=== PATIENT | female | born 1950 | race Caucasian/White ===

== ENCOUNTER 2018-08-08 08:56 | Outpatient (CLI) | payer BC ==
[2018-08-08 09:33] LABS: BASOPHILS 0.6 % (0-2); EOSINOPHILS 3.5 % (0-7); HEMATOCRIT 43.3 % (36.0-48.0); HEMOGLOBIN 13.9 g/dL (12-16); IMMATURE GRANULOCYTES 0.4 % (0-5); LYMPHOCYTES 26.9 % (15-50); MCHC 32.1 g/dL (31.0-37.0); MCV 87.3 fL (80.0-100.0); MEAN PLATELET VOLUME 10.3 fL (7.4-10.4); MONOCYTES 9.8 % (2-11); NEUTROPHILS 58.8 % (40-80); RBC 4.96 10x6/uL (4.00-5.40); WBC 8.3 10x3/uL (4.8-10.8)
[2018-08-08 09:40] LABS: PLATELET COUNT 320 10x3/uL (130-400)
[2018-08-08 09:41] LABS: CALC OSMOLALITY 283 mosm/kg (275-300); CALCIUM 9.4 mg/dL (8.5-10.1); CARBON DIOXIDE 25.1 mmol/L (21.0-32.0); CHLORIDE - SERUM 104 mmol/L (98-107); CREATININE - SERUM 0.8 mg/dL (0.6-1.3); GLUCOSE 114 mg/dL (74-106); SODIUM 141 mmol/L (136-145); UREA NITROGEN 18 mg/dL (7-18); eGFR NON AFRICAN AMERICAN 75 mL/min (90-120)
== END 2018-08-08 15:30 | disposition home or self-care (01) ==
LOC: D.CATH 08:56
PROVIDERS: Internal Medicine Interventional Cardiology
DX: I25.119 Atherosclerotic heart disease of native coronary artery with unspecified angina pectoris (principal); Z95.5 Presence of coronary angioplasty implant and graft; Z01.812 Encounter for preprocedural laboratory examination

== ENCOUNTER 2019-06-30 13:31 | Inpatient (IN) | payer BC ==
[~2019-06-30] VITALS: Ht 170.2 cm; Wt 81.4 kg
--- NOTE | ~2019-06-30 | HEMODYNAMI ---
PATIENT:KHUSHBU HOBSON MEDICAL RECORD: [id number] : 50 [id number] ADMISSION DATE: 06/30/19 Generatedon:07/01/201915:58 Patient name: KHUSHBU HOBSON Patient #: [id number] SSN: : 1950 Date of study: 07/01/2019 Page: Of Hemodynamic Procedure Report Patient Data Patient Demographics Procedure consent was obtained First Name: KHUSHBU Gender: Female Last Name: JAZLYN : 1950 [facility] Initial: MATHEUS Age: 69 year(s) Patient #: [id number] Race: Unknown Additional ID: [id number] Contact details Address: [address] [place] [address] State: [place] City: [place] Zip code: [address] Admission Admission Data Admission Date: 06/30/2019 Admission Time: 16:44 Arrival Date: 06/30/2019 Arrival Time: 16:44 Admit Source: Emergency Insurance Payor: Private department health insurance Room #: D.2118 [facility] #: [id number] Height (in.): 66.93 BSA: 1.93 (m2) Height (cm.): 170 BMI: 28.03 (kg/m2) Weight (lbs.): 178.58 Weight (kg.): 81 Procedure Procedure Types Cath Procedure Diagnostic Procedure [facility] w/Coronaries FFR/IVUS FFR Initial Sedation Charges Moderate Sedation up to 30 minutes PCI Procedure Coronary Stent Coronary Stent Initial Procedure Description Procedure Date Procedure Date: 07/01/2019 Procedure Start Time: 15:37 Procedure End Time: 15:53 Procedure Staff Name Function Bryn Taylor MD Performing Physician Pennie Lam RT Monitor Mary Lino RT Scrub Delisa Hughes RN Nurse Indication Angina Procedure Data Cath Procedure Fluoroscopy Diagnostic fluoroscopy Total fluoroscopy Time: 2.9 time: 2.9 min min Diagnostic fluoroscopy Total fluoroscopy dose: 453 dose: 453 mGy mGy Contrast Material Contrast Material Type Amount (ml) Isovue 300 71 Entry Location Entry Primary Successful Side Size Upsize Upsize Entry Closure Succes sful Closure Location (Fr) 1 (Fr) 2 (Fr) Remarks Device Remarks Femoral Right 5 Fr Exoseal artery Estimated blood loss: 5 ml Diagnostic catheters Device Type Used For End Catheter Placement MULTIPACK Pigtail 5 Fr LV Angiography catheter MULTIPACK JL 4.0 5Fr Left Coronary catheter Angiography MULTIPACK 3DRC 5Fr Right Coronary catheter Angiography Procedure Complications No complications Procedure Medications Medication Administration Route Dosage 0.9% NaCl I.V. 100 ml/hr Oxygen etCO2 Nasal cannula 2 l/min Lidocaine 2% added to field 20 Heparin Flush Bag added to field 2 bags (1000units/500ml NS) Phenergan I.V. 25 mg Versed I.V. 2 mg Fentanyl I.V. 100 mcg Heparin Bolus I.V. 4000 units Integrilin (Bolus I.V. 7.3 ml 2mg/ml) Integrilin (Bolus wasted 2.7 ml 2mg/ml) Effient P.O. 60 mg Hemodynamics Rest BSA: 1.93 (m2) O2 Consumption: Estimated: 169.72 (ml/min) O2 Consumption indexed : Estimated:87.94 (ml/min/m) Heart Rate: 58 (bpm) Snapshots Pre Cath Intra NCS Post Cath Vital Signs Time Heart Resp SPO2 etCO2 NIBP (mmHg) Rhythm Pain Sedation Rate (ipm) (%) (mmHg) Status Level (bpm) 15:20:39 56 13 98 34 133/58(103) SB 0 (11) 10(A) , No pain 15:25:09 54 10 96 34 121/57(89) SB 0 (11) 10(A) , No pain 15:29:31 56 21 99 32.8 119/54(94) SB 0 (11) 10(A) , No pain 15:33:52 57 11 99 32.8 114/52(82) SB 0 (11) 10(A) , No pain 15:38:12 60 13 95 35 107/53(74) SB 0 (11) 10(A) , No pain 15:42:32 67 12 96 36.6 106/48(72) SB 0 (11) 10(A) , No pain 15:46:48 71 14 95 35.8 117/57(81) SB 0 (11) 10(A) , No pain 15:51:06 74 17 96 29.8 129/64(96) SB 0 (11) 10(A) , No pain Medications Time Medication Route Dose Verified Delivered Reason Notes Effectiveness by by 15:19:28 0.9% NaCl I.V. 100 Bryn Delisa used for ml/hr Claudia Hughes reading tutor 15:19:35 Oxygen etCO2 2 Bryn Delisa used for Nasal l/min Claudia Hughes procedure cannula RN 15:19:40 Lidocaine 2% added 20ml Bryn Clemente for local to vial Claudia Taylor MD anesthetic field 15:19:44 Heparin Flush added 2 Bryn Bryn used for Bag to bags Claudia Taylor MD procedure (1000units/500ml field NS) 15:26:34 Phenergan I.V. 25 mg Bryn Delisa for nausea Claudia Hughes RN 15:34:01 Versed I.V. 2 mg Bryn Delisa for sedation Claudia Hughes RN 15:34:08 Fentanyl I.V. 100 Bryn Delisa for sedation mcg Claudia Hughes RN 15:47:28 Heparin Bolus I.V. 4000 Bryn Bryn for verif ied units Claudia Taylor MD anticoagulation with Dr. Taylor 15:48:12 Integrilin I.V. 7.3 Bryn Delisa for (Bolus 2mg/ml) ml Claudia Hughes antiplatelet RN therapy 15:48:35 Integrilin wasted 2.7 Bryn Delisa for (Bolus 2mg/ml) ml Claudia Hughes antiplatelet RN therapy 15:48:50 Effient P.O. 60 mg Bryn Delisa for Claudia Hughes antiplatelet RN therapy Procedure Log Time Note 15:09:40 Indication : Angina 15:09:46 Delisa Hughes RN sent for patient. Start room use. 15:09:47 Time tracking: Regular hours (M-F 7:00 - 5:00) 15:09:52 Plan of Care:Hemodynamics will remain stable., Cardiac rhythm will remain stable., Comfort level will be maintained., Respiratory function will remain adequate., Patient/ family verbilizes understanding of procedure., Procedure tolerated without complication., Recovers from procedure without complications.. 15:16:16 Patient received from Med II to [facility] 1 Alert and oriented. Tansferred to table in Supine position. 15:16:17 Warm blankets applied, and lexii hugger turned on for patient comfort. 15:16:18 Correct patient and procedure confirmed by team. 15:16:19 Signed procedure consent form obtained from patient. 15:16:20 ECG and BP/O2 sat monitors applied to patient. 15:16:40 2) 60-89 Mildly reduced kidney function, and other findings (as for stage 1) point to kidney disease. 15:17:10 Maximum allowable contrast dose (3.7 X eGFR X 0.75)244\ ml. 15:19:19 Vital chart was started 15:19:28 0.9% NaCl 100 ml/hr I.V. was administered by Delisa Hughes RN; used for procedure; Verbal order read back and verified. 15:19:35 Oxygen 2 l/min etCO2 Nasal cannula was administered by Delisa Hughes RN; used for procedure; Verbal order read back and verified. 15:19:40 Lidocaine 2% 20ml vial added to field was administered by Bryn Taylor MD; for local anesthetic; Verbal order read back and verified. 15:19:44 Heparin Flush Bag (1000units/500ml NS) 2 bags added to field was administered by Bryn Taylor MD; used for procedure; Verbal order read back and verified. 15:21:04 Baseline sample Acquired. 15:21:08 Rhythm: sinus rhythm 15:21:11 Full Disclosure recording started 15:21:15 H&P Date Dictated: 07/01/2019 ER History on chart., New H&P dictated by physician.. 15:21:18 Pre-procedure instructions explained to patient. 15:21:18 Pre-op teaching completed and patient verbalized understanding. 15:21:25 Family unavailable. 15:21:27 Patient NPO since Midnight. 15:21:30 Is the patient allergic to Iodine/contrast media? No. 15:21:31 Was the patient premedicated? Yes 15:21:35 Is patient on blood thinner?No 15:21:37 Patient diabetic? No. 15:21:47 Previous problem with sedation/anesthesia? Yes nausea 15:21:49 Snore? No 15:21:50 Sleep apnea? No 15:21:51 Deviated septum? No 15:21:52 Opens mouth fully? Yes 15:21:53 Sticks out tongue? Yes 15:21:55 Airway obstruction? No ? 15:21:58 Dentures? No ? 15:22:01 Pre procedure: right dorsailis pedis pulse 1+ Palpable, but thready & weak; easily obliterated 15:22:03 Pre procedure: left dorsailis pedis pulse 1+ Palpable, but thready & weak; easily obliterated 15:22:05 Patient pain scale 0/10 ?. 15:22:14 IV patent on arrival in left forearm with 0.9% NaCl at [facility]. 15:22:23 Lab results completed and on chart. 15:22:28 Stress Test: no; N/A ? 15:22:32 Risk of Mortality: 1.5 15:22:36 Risk of blood transfusion: 6.3 15:22:40 Risk of SALMA: 7.7 15:22:49 Right groin area was prepped with chlora-prep and draped in sterile fashion 15:22:50 Alarms reviewed by R. N. 15:22:51 Sharps counted by scrub and verified by R.N. 15:24:33 Physician paged 15:25:22 Use device set Femoral Dx 15:25:23 ACIST Syringe (70541) opened to sterile field. 15:25:23 Bag Decanter (2002S) opened to sterile field. 15:25:24 Medline Cath Pack ([id number]) opened to sterile field. 15:25:25 ACIST Hand Control (19973) opened to sterile field. 15:25:25 ACIST Manifold (88488) opened to sterile field. 15:25:26 DIAGNOSTIC Multipack 5Fr catheter set (PC4671) opened to sterile field. 15:25:26 Tegaderm 4 x 4 (1626W) opened to sterile field. 15:25:28 SHEATH 5FR Stanton ([id number]) opened to sterile field. 15:25:28 EMERALD Guide Wire (008-946) opened to sterile field. 15:26:34 Phenergan 25 mg I.V. was administered by Delisa Hughes RN; for nausea; Verbal order read back and verified. 15:33:03 Physician arrived 15:33:04 --------ALL STOP TIME OUT------ 15:33:04 Final Timeout: patient, procedure, and site verified with staff and physician. All members of the team are in agreement. 15:33:07 Right groin site verified by team. 15:33:10 Fire Safety Assessment: A--An alcohol-based skin anteseptic being used preoperatively., C--Open oxygen or nitrous oxide is being used., D--An ESU, laser, or fiber-optic light is being used. 15:33:16 Physical assessment completed. ASA score P 2 - A patient with mild systemic disease as per Bryn Taylor MD. 15:33:21 Sedation plan: IV Moderate Sedation Medication:Versed, Fentanyl 15:33:33 Procedure started. 15:34:01 Versed 2 mg I.V. was administered by Delisa Hughes RN; for sedation; Verbal order read back and verified. 15:34:08 Fentanyl 100 mcg I.V. was administered by Delisa Hughes RN; for sedation; Verbal order read back and verified. 15:35:30 Admit Source: Emergency department 15:35:36 Arrival Date: 06/30/2019 4:44:00 PM 15:35:41 Insurance Payor : Private health insurance 15:37:07 Patient Weight : 178.58 lbs 15:37:12 Patient Height : 66.93 inches 15:37:20 Local anesthetic to right femoral artery with Lidocaine 2% by Bryn Taylor MD.INITIAL ACCESS ONLY 15:37:32 A 5 Fr sheath was inserted into the Right Femoral artery 15:38:23 A MULTIPACK Pigtail 5 Fr catheter was advanced over the wire and used for LV Angiography. 15:39:19 LV hemodynamics recorded. 15:39:20 LV gram done using WILLIAMSON 15:39:22 Injector settings: Ml/sec: 5, Volume: 15, 15:39:33 EF : 70 % 15:39:36 Catheter removed. 15:39:41 A MULTIPACK JL 4.0 5Fr catheter was advanced over the wire and used for Left Coronary Angiography. 15:40:29 LCA angiography performed. 15:40:31 Injector settings: Ml/sec: 3, Volume: 6, 15:41:36 Catheter removed. 15:41:53 A MULTIPACK 3DRC 5Fr catheter was advanced over the wire and used for Right Coronary Angiography. 15:41:57 RCA angiography performed. 15:42:00 Injector settings: Ml/sec: 3, Volume: 6, 15:43:05 Catheter removed. 15:43:07 Proceeding to intervention. 15:43:19 GUIDE 5FR EBU 3.5 catheter ([id number]) opened to sterile field. 15:43:20 INFLATOR Merit BasixCompak (SV4770) opened to sterile field. 15:43:25 Hampshire Verrata Plus pressure wire (02149U) opened to sterile field. 15:43:38 5 Fr EBU 3.5 guide catheter was inserted over the wire 15:43:44 FFR/IFR wire advanced. 15:43:46 Baseline FFR 1. 15:45:58 pCirc lesion measured at 0.89 with IFR 15:46:36 ACC Pre-intervention HILTON Flow is 3. 15:47:06 Pre PCI Site: [place] pCirc has 70% stenosis. 15:47:28 Heparin Bolus 4000 units I.V. was administered by Bryn Taylor MD; for anticoagulation; verified with Dr. Taylor Verbal order read back and verified. 15:48:12 Integrilin (Bolus 2mg/ml) 7.3 ml I.V. was administered by Delisa Hughes RN; for antiplatelet therapy; Verbal order read back and verified. 15:48:35 Integrilin (Bolus 2mg/ml) 2.7 ml wasted was administered by Delisa Hughes RN; for antiplatelet therapy; Verbal order read back and verified. 15:48:47 Place stent Inflation Number: 1 A COBRA RX 3.0 X 15 Stent was prepped and advanced across the Prox CX 70. The stent was deployed at 13 DEUCE for 0:10 (min:sec) . 15:48:50 Effient 60 mg P.O. was administered by Delisa Hughes RN; for antiplatelet therapy; Verbal order read back and verified. 15:50:30 Post PCI Site: [place] pCirc has 0% stenosis. 15:50:33 ACC Post-intervention HILTON Flow is 3. 15:50:37 ACT drawn and resulted at 261 seconds. (normal therapeutic range 180-240 seconds). 15:50:38 Stent catheter was removed intact over wire. 15:50:38 Wire removed. 15:50:39 Guide catheter removed. 15:50:46 EXOSEAL 5Fr (EX500) opened to sterile field. 15:51:15 Sheath removed intact; hemostasis achieved with Exoseal to the Right Femoral artery. 15:51:18 Procedure ended.(Physican Out) 15:52:01 ACCDominant side:Right 15:52:05 Fluoroscopy time 02.90 minutes. 15:52:09 Flurop Dose total: 453 15:52:09 Fluoroscopy dose: 453 mGy 15:52:14 Dose Area Product 07677 mGy/cm. 15:52:24 Contrast amount:Isovue 300 71ml. 15:52:27 Maximum allowable dose exceeded? No. 15:52:28 Sharps counted by scrub and verified by R.N. 15:52:30 Insertion/operative site no bleeding no hematoma. 15:52:32 Post-op/insertion site Right Femoral artery dressed using a 4 x 4 and Tegaderm. 15:52:34 Post Procedure Pulses reassessed and unchanged 15:52:36 Post procedure rhythm: unchanged. 15:52:39 Estimated blood loss: 5 ml 15:52:40 Post procedure instruction explained to patient.Patient verbalizes understanding. 15:52:41 Patient needs reinforcement of post procedure teaching. 15:52:56 Procedure type changed to Cath procedure, Diagnostic procedure, LHC, LHC w/Coronaries, FFR/IVUS, FFR Initial, Sedation Charges, Moderate Sedation up to 30 minutes, PCI procedure, Coronary Stent, Coronary Stent Initial 15:52:57 Procedure and supply charges have been captured, reviewed, submitted and are correct. 15:53:03 Procedure Complication : No complications 15:53:05 Vital chart was stopped 15:53:10 [facility] Findings: MVD- PCI performed (see procedure note) 15:53:11 Operative report dictated upon procedure completion. 15:53:12 See physician's report for complete and final results. 15:53:19 Report given to [facility] II. 15:53:22 Patient transfered to Med II with Stretcher. 15:53:24 Procedure ended. 15:53:24 Full Disclosure recording stopped 15:53:35 ACC-PCI Only Patient was given prescriptions, or instructed by Bryn Taylor MD to start/continue the following medications upon discharge: Effient 15:53:37 End room use (Document Last) Intervention Summary Intervention Notes Time ActionType Lesion and Equipment Action# Pressure Duration Attributes Used 15:48:47 Place stent Prox CX COBRA RX 1 13 00:10 3.0 X 15 Stent Device Usage Item Name Manufacture Quantity Catalog Hospital Part Current Minimal Lot# / Number Charge Number Stock Stock Serial# Code ACIST Syringe Acist 1 12918 783127 931516 416210 20 (01408) Medical Systems Inc Bag Decanter Microtek 1 2001S 074566 66524 469564 5 () Medical Inc. Medline Cath Medline 1 [id number] 391984 11950 954751 5 Pack ([id number]) ACIST Hand Acist 1 48719 543650 652935 107957 5 Control Medical (86745) Systems Inc ACIST Manifold Acist 1 52768 254356 647776 898780 5 (76256) Medical Systems Inc DIAGNOSTIC Cardinal 1 RR1767 683167 20131 499266 30 Multipack 5Fr Health catheter set (RT3849) Tegaderm 4 x 4 3M 1 1626W 657052 518097 200711 5 (1626W) SHEATH 5FR Terumo 1 RRE585 981394 857459 527353 5 Stanton (KJI299) EMERALD Guide Cardinal 1 502-455 541702 676335 453015 5 Wire (502-455) Health MULTIPACK Cardinal 1 890313 5 Pigtail 5 Fr Health catheter MULTIPACK JL Cardinal 1 101708 5 4.0 5Fr Health catheter MULTIPACK 3DRC Cardinal 1 362694 5 5Fr catheter Health GUIDE 5FR EBU Medtronic 1 [id number] 293173 426886 406564 1 3.5 catheter ([id number]) INFLATOR Merit Merit 1 BE2987 917816 405742 016658 15 BasixBeam ExpressiaMixed Media Labs Medical (OH2700) Hampshire Hampshire 1 88266S 726930 105517985 548428 5 Verrata Plus pressure wire (43059J) COBRA RX 3.0 X Celonova 1 057-89-78758 536295 [id number] 444709 6 [id number] 15 stent Biosciences ([id number]) EXOSEAL 5Fr Cardinal 1 EX500 082757 136067 046169 10 (EX500) Health Signature Audit [place] Stage Time Signature Unsigned Intra-Procedure 07/01/2019 Pennie Lam 3:57:48 PM RT(R) Intra-Procedure 07/01/2019 Delisa Hughes 3:58:24 PM RN Intra-Procedure 07/01/2019 Bryn Taylor 3:58:44 PM [place] [address] [place] [address]
[~2019-06-30 13:31] MED LIST: ASPIRIN EC81 M1 PO; CARTIA XT120 MG PO; CLARITIN 10 MG10 MG PO; IMDUR30 MG PO; LEVOXYL25 MCG PO; NEXIUM20 MG PO; PLAVIX75 MG PO; PRAVACHOL40 MG PO; PREVACID15 MG PO; TOPROL XL25 MG PO
[2019-06-30 14:09] VITALS: BP 117/58
[2019-06-30 14:26] LABS: BASOPHILS 0.3 % (0-2); EOSINOPHILS 1.5 % (0-7); HEMOGLOBIN 13.5 g/dL (12-16); IMMATURE GRANULOCYTES 0.5 % (0-5); LYMPHOCYTES 40.4 % (15-50); MCH 28.2 pg (26.0-34.0); MCHC 32.1 g/dL (31.0-37.0); MCV 87.9 fL (80.0-100.0); MONOCYTES 10.5 % (2-11); NEUTROPHILS 46.8 % (40-80); PLATELET COUNT 321 10x3/uL (130-400); RBC 4.78 10x6/uL (4.00-5.40); RDW 14.7 % (11.5-14.5); WBC 13.3 10x3/uL (4.8-10.8)
[2019-06-30 14:33] LABS: APTT 26.3 SECONDS (22.8-39.4); INR 0.98 (0.85-1.17); PROTIME 12.5 SECONDS (11.6-15.0)
[2019-06-30 14:36] LABS: CALC OSMOLALITY 287 mosm/kg (275-300); CALCIUM 9.5 mg/dL (8.5-10.1); CARBON DIOXIDE 19.9 mmol/L (21.0-32.0); CHLORIDE - SERUM 106 mmol/L (98-107); CREATININE - SERUM 0.7 mg/dL (0.6-1.3); GLUCOSE 127 mg/dL (74-106); POTASSIUM - SERUM 3.4 mmol/L (3.5-5.1); SODIUM 142 mmol/L (136-145); UREA NITROGEN 22 mg/dL (7-18); eGFR NON AFRICAN AMERICAN 88 mL/min (90-120)
[2019-06-30 14:51] LABS: ALBUMIN 4.1 g/dL (3.4-5.0); ALKALINE PHOSPHATASE 103 U/L (46-116); ALT (SGPT) 23 U/L (10-68); BILIRUBIN - TOTAL 0.42 mg/dL (0.2-1.3); CKMB 0.2 U/L (0.0-3.6); CREATINE KINASE 59 UL (21-215); MAGNESIUM - SERUM 2.2 mg/dL (1.8-2.4); PROTEIN - SERUM 7.4 g/dL (6.4-8.2); TROPONIN-I < 0.017 ng/mL (0.000-0.060)
[2019-06-30 15:15] LABS: AMYLASE - SERUM 58 U/L (25-115); LIPASE 304 U/L (73-393)
[2019-06-30] MEDS ORDERED: CARAFATE1 G PO (17:54)
[2019-06-30 18:06] VITALS: BMI 28.1
--- NOTE | 2019-06-30 19:16 | NUR ---
RECEIVED BEDSIDE REPORT. PATIENT IS ALERT AND ORIENTED, RESTING COMFORTABLY IN BED. RESPIRATIONS ARE EVEN AND UNLABORED. NO S/S OF DISTRESS. NO C/O PAIN. CALL LIGHT WITHIN REACH. WILL CPOC.
[2019-06-30 20:40] LABS: CKMB 0.8 U/L (0.0-3.6); CREATINE KINASE 73 UL (21-215)
[2019-06-30 20:41] LABS: TROPONIN-I 0.153 ng/mL (0.000-0.060)
[2019-06-30 21:04] VITALS: BP 140/73
[2019-07-01 00:24] VITALS: BP 135/62
[2019-07-01 04:30] VITALS: BP 129/51
[2019-07-01 04:32] LABS: BASOPHILS 0.4 % (0-2); EOSINOPHILS 0.7 % (0-7); HEMATOCRIT 35.9 % (36.0-48.0); HEMOGLOBIN 11.1 g/dL (12-16); IMMATURE GRANULOCYTES 0.1 % (0-5); LYMPHOCYTES 29.5 % (15-50); MCH 27.4 pg (26.0-34.0); MCHC 30.9 g/dL (31.0-37.0); MCV 88.6 fL (80.0-100.0); MONOCYTES 10.2 % (2-11); NEUTROPHILS 59.1 % (40-80); RBC 4.05 10x6/uL (4.00-5.40); RDW 14.9 % (11.5-14.5)
[2019-07-01 04:40] LABS: PLATELET COUNT 255 10x3/uL (130-400); WBC 9.7 10x3/uL (4.8-10.8)
[2019-07-01 05:07] LABS: CALCIUM 8.2 mg/dL (8.5-10.1); CHLORIDE - SERUM 112 mmol/L (98-107); CKMB 1.2 U/L (0.0-3.6); CREATINE KINASE 78 UL (21-215); CREATININE - SERUM 0.7 mg/dL (0.6-1.3); GLUCOSE 83 mg/dL (74-106); POTASSIUM - SERUM 3.9 mmol/L (3.5-5.1); SODIUM 145 mmol/L (136-145); eGFR NON AFRICAN AMERICAN 88 mL/min (90-120)
[2019-07-01 05:10] LABS: CALC OSMOLALITY 287 mosm/kg (275-300); CARBON DIOXIDE 26.4 mmol/L (21.0-32.0); UREA NITROGEN 13 mg/dL (7-18)
[2019-07-01 09:18] LABS: CKMB 1.1 U/L (0.0-3.6); CREATINE KINASE 81 UL (21-215)
[2019-07-01 09:19] LABS: TROPONIN-I 0.389 ng/mL (0.000-0.060)
[2019-07-01 13:13] VITALS: Ht 170.2 cm; Wt 81.4 kg
[2019-07-01 13:36] VITALS: BP 127/58
--- NOTE | 2019-07-01 13:39 | NUR ---
WAS INFORMED BY CLINICAL LAW PROFESSOR THAT THEY WILL NOT BEING DOING PT'S HEART CATH UNTIL AROUND 1530. NOTIFIED PT AND SPOUSE.
--- NOTE | 2019-07-01 15:09 | NUR ---
PT TO JOB RECRUITER
--- NOTE | 2019-07-01 15:43 | MORECARE ---
CASE MANAGEMENT DISCHARGE SUMMARY PATIENT: KHUSHBU HOBSON UNIT: [id number] ADM DATE: 06/30/19 AGE: 69 : 50 SEX: F ROOM/BED: D.2118 AUTHOR: PATRIA MCKEE PHYSICIAN: REFERRING PHYSICIAN: JIMENEZ STEINBERG MD DATE OF SERVICE: 07/01/19 Discharge Plan Patient Name: KHUSHBU HOBSON [facility] [facility] 1950 Planned Disposition: Anticipated Discharge Date: Discharge Date: Expected LOS: Initial Reviewer: [email or web address] Initial Review Date: 06/30/2019 Generated: 07/01/19 4:43 pm External Providers External Provider: OTHER-OTHER Next Contact Date: Service Request Date: Service Type: Resolution: Reviewer: Comments: Patient Name: KHUSHBU HOBSON Page 74839 at 1543 All edits/amendments must be made on the electronic document DICTATION DATE: 07/01/191542 [place]ACHUTE HARNESS RIGGER: BRITT 07/01/19 154 RPT#: [id number] DC DATE: STATUS: ADM IN [facility] [address] [place] [address] END OF REPORT
--- NOTE | 2019-07-01 16:15 | NUR ---
RECEIVED PT BACK TO ROOM 2117, PT A LITTLE DROWSY BUT EASILY AROUSES TO VOICE. VITAL SIGNS STABLE, PLACED PT ON FREQUENT VITAL SIGNS. RT GROIN DRESSING CDI, NO SIGNS OF BLEEDING OR HEMATOMA NOTED. PT DENIES ANY NEEDS AT THIS TIME. CALL LIGHT IN REACH,NAD NOTED, WILL CONTINUE TO MONITOR.
--- NOTE | 2019-07-01 18:15 | NUR ---
CALLED SILVIA PATTERSON AND INFORMED HIM THAT PT IS REQUESTING SOMETHING TO HELP HER RELAX SINCE SHE STILL HAS 2HR OF BED REST. NEW ORDER FOR 5MG OF VALIUM.
[2019-07-01 18:23] VITALS: BP 123/56
--- NOTE | 2019-07-01 19:00 | NUR ---
RECEIVED BEDSIDE REPORT. PATIENT IS ALERT AND ORIENTED, RESTIONG COMFORTABLY IN BED. RESPIRATIONS ARE EVEN AND UNLABORED. NO S/S OF DISTRESS. NO C/O PAIN. NEEDS MET. CALL LIGHT WITHIN REACH. WILL CPOC.
[2019-07-01 20:00] VITALS: BP 112/54
[2019-07-02] VITALS: BP 104/49
[2019-07-02 04:00] VITALS: BP 112/53
[2019-07-02 05:46] LABS: BASOPHILS 0.5 % (0-2); EOSINOPHILS 1.1 % (0-7); HEMOGLOBIN 10.5 g/dL (12-16); IMMATURE GRANULOCYTES 0.1 % (0-5); LYMPHOCYTES 21.1 % (15-50); MCH 27.6 pg (26.0-34.0); MCHC 30.9 g/dL (31.0-37.0); MCV 89.5 fL (80.0-100.0); MEAN PLATELET VOLUME 10.5 fL (7.4-10.4); MONOCYTES 12.1 % (2-11); NEUTROPHILS 65.1 % (40-80); PLATELET COUNT 222 10x3/uL (130-400); RDW 15.1 % (11.5-14.5); WBC 8.9 10x3/uL (4.8-10.8)
[2019-07-02 05:54] LABS: CALC OSMOLALITY 286 mosm/kg (275-300); CALCIUM 7.8 mg/dL (8.5-10.1); CARBON DIOXIDE 23.8 mmol/L (21.0-32.0); CHLORIDE - SERUM 111 mmol/L (98-107); CREATININE - SERUM 0.7 mg/dL (0.6-1.3); GLUCOSE 86 mg/dL (74-106); MAGNESIUM - SERUM 2.1 mg/dL (1.8-2.4); POTASSIUM - SERUM 3.7 mmol/L (3.5-5.1); SODIUM 144 mmol/L (136-145); UREA NITROGEN 16 mg/dL (7-18); eGFR NON AFRICAN AMERICAN 88 mL/min (90-120)
[2019-07-02 09:18] VITALS: BP 119/50
[2019-07-02] MEDS ORDERED: EFFIENT10 MG PO (11:06)
[2019-07-02] MEDS ORDERED: ASPIRIN325 MG PO (11:07)
--- NOTE | 2019-07-02 11:13 | NUR ---
PER DR DOBBINS NO BB R/T BRADYCARDIA AFTER HE REVIEWED THE VITAL SIGNS.
--- NOTE | 2019-07-02 11:23 | NUR ---
UPON ADMIT PATIENT HAS NOT HAD A FLU SHOT THIS YEAR. WHEN ASKED, SHE REFUSED IT AND STATES THAT SHE DOES NOT TAKE IT.
--- NOTE | 2019-07-02 11:47 | MORECARE ---
CASE MANAGEMENT DISCHARGE SUMMARY PATIENT: KHUSHBU HOBSON UNIT: [id number] ADM DATE: 07/01/19 AGE: 69 : 50 SEX: F ROOM/BED: D.0088 AUTHOR: PATRIA MCKEE PHYSICIAN: REFERRING PHYSICIAN: JIMNEEZ STEINBERG MD DATE OF SERVICE: 07/02/19 Discharge Plan Patient Name: KHUSHBU HOBSON [facility] [facility] 1950 Planned Disposition: Home Anticipated Discharge Date: 07/02/19 Discharge Date: Expected LOS: 1 Initial Reviewer: [email or web address] Initial Review Date: 06/30/2019 Generated: 07/02/19 12:46 pm DCPIA - Discharge Planning Initial Assessment Updated by [email or web address]: Keegan Browning on 07/02/19 11:45 am * Is the patient Alert and Oriented? Yes * How many steps to enter\exit or inside your home? 5-O / 17-I * PCP DR. STEINBERG * Pharmacy [facility] IN [place] * Preadmission Environment Home with Family * ADLs Independent * Equipment None * Other Equipment NO MEDICAL EQUIPMENT PROVIDER PREFERENCE * List name and contact numbers for known caregivers / representatives who currently or will assist patient after discharge: DELROY HOBSON, SPOUSE, * Verbal permission to speak to the caregivers and representatives has been obtained from the patient. Yes * Community resources currently utilized None * Please name any agencies selected above. NONE * Additional services required to return to the preadmission environment? No * Can the patient safely return to the preadmission environment? Yes * Has this patient been hospitalized within the prior 30 days at any hospital? No Last DP export: 07/01/19 2:43 Patient Name: KHUSHBU HOBSON Page 24422 at 1147 All edits/amendments must be made on the electronic document DICTATION DATE: 07/02/19 114 CERTIFIED NURSING ASSISTANT INSTRUCTOR: BRITT 07/02/19 1146 RPT#: [id number] DC DATE: STATUS: ADM IN [facility] [address] [place] [address] END OF REPORT
--- NOTE | 2019-07-02 11:56 | MORECARE ---
CASE MANAGEMENT DISCHARGE SUMMARY PATIENT: KHUSHBU HOBSON UNIT: [id number] ADM DATE: 07/01/19 AGE: 69 : 50 SEX: F ROOM/BED: D.1494 AUTHOR: RYLEE,DOC PHYSICIAN: REFERRING PHYSICIAN: JIMENEZ STEINBERG MD DATE OF SERVICE: 07/02/19 Discharge Plan Patient Name: KHUSHBU HOBSON [facility]:[place] : 1950 Planned Disposition: Home Anticipated Discharge Date: 07/02/19 Discharge Date: Expected LOS: 1 Initial Reviewer: [email or web address] Initial Review Date: 06/30/2019 Generated: 07/02/19 12:55 pm Comments DCP- Discharge Planning Updated by [email or web address]: Keegan Browning on 07/02/19 10:[address] Patient Name: KHUSHBU HOBSON Admission Status: ER Accout number: [id number] Admission Date: 07-01-2019 : 1950 Admission Diagnosis: Attending: IDRIS, Current LOS: 1 Anticipated DC Date: 07-02-2019 Planned Disposition: Home Primary Insurance: [employer] [facility] Discharge Planning Comments: CM MET WITH PT AND SPOUSE IN ROOM TO DISCUSS DISCHARGE PLANNING AND NEEDS. KHUSHBU HOBSON provided verbal consent to discuss current and ongoing needs with/in the presence of: SPOUSE, AISLINN. PT REPORTS LIVING AT HOME INDEPENDENTLY WITH HER SPOUSE. PT HAS NO MEDICAL EQUIPMENT AND NO OUTSIDE SERVICES ASSISTING IN THE HOME. CM DISCUSSED AVAILABILITY OF HOME HEALTH, REHAB SERVICES AND MEDICAL EQUIPMENT. PT DENIES DISCHARGE NEEDS, REPORTS HER SPOUSE IS HERE TO PICK HER UP FOR DISCHARGE HOME TODAY. BEDSIDE AND SOLID CENTER WINDER NURSE NOTIFIED. Director Of Quality Control: Keegan Browning DCPIA - Discharge Planning Initial Assessment Updated by [email or web address]: Keegan Browning on 07/02/19 11:45 am * Is the patient Alert and Oriented? Yes * How many steps to enter\exit or inside your home? 5-O / 17-I * PCP DR. STEINBERG * Pharmacy [facility] IN [place] * Preadmission Environment Home with Family * ADLs Independent * Equipment None * Other Equipment NO MEDICAL EQUIPMENT PROVIDER PREFERENCE * List name and contact numbers for known caregivers / representatives who currently or will assist patient after discharge: DELROY HOBSON, SPOUSE, * Verbal permission to speak to the caregivers and representatives has been obtained from the patient. Yes * Community resources currently utilized None * Please name any agencies selected above. NONE * Additional services required to return to the preadmission environment? No * Can the patient safely return to the preadmission environment? Yes * Has this patient been hospitalized within the prior 30 days at any hospital? No Last DP export: 07/02/19 10:47 Patient Name: KHSUHBU HOBSON Page 34829 at 1156 All edits/amendments must be made on the electronic document DICTATION DATE: 07/02/19 1155 EXIT BOOTH AGENT: BRITT 07/02/19 1155 RPT#: [id number] DC DATE: STATUS: ADM IN [facility] [address] [place] [address] END OF REPORT
--- NOTE | 2019-07-02 12:54 | NUR ---
IV AND TELEMETRY DCD. DC PLANS GIVEN. UNDERSTANDING VOICED. ESCORTED TO CAR BY W/C.
--- NOTE | 2019-07-08 14:07 | OP ---
PATIENT NAME: KHUSHBU HOBSON MEDICAL RECORD: [id number] :50 LOCATION:D.M2 D.2118 ADMISSION DATE:07/01/19 SURGEON: ROCKY DAVIS MD DATE OF OPERATION: 07/01/2019 PROCEDURES: 1. PTCA stent left circumflex. 2. IFR. 3. Left heart catheterization. 4. Selective coronary angiography. 5. Left ventriculogram. INDICATION: Non-Q-wave myocardial infarction and coronary artery disease. PROCEDURE IN DETAIL: After informed consent was obtained and after detailed explanation of risks, benefits as well as alternative therapies, the patient elected to proceed with angiogram and angioplasty. The right femoral area was prepped and draped in normal sterile fashion. Right femoral artery was cannulated via modified Seldinger technique with placement of 6-Amharic sheath. All catheters exchanged through this sheath. FINDINGS: Left ventriculogram was performed in standard 30-degree WILLIAMSON view, reveals good cardiac wall motion, ejection fraction 70%. SELECTIVE CORONARY ANGIOGRAPHY: 1. Left main is with no significant angiographic disease. 2. Left anterior descending has mild irregularities, but no flow-limiting stenosis. 3. The left circumflex has moderate irregularities proximally and one view it appears that this is 70%. IFR is abnormal at 0.89. 4. The right coronary has mild irregularities, but no flow-limiting stenosis. Previously placed stents are widely patent. PTCA STENT OF THE LEFT CIRCUMFLEX: The stent used was a 3.0 x 15 mm Cobra. Result was 0% residual stenosis. IFR normalized to 1.0 after the procedure. OVERALL IMPRESSION: Successful PTCA stent of the left circumflex going from 70% initial stenosis with an abnormal IFR to 0% residual stenosis with normalization of the IFR after stenting. 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
--- NOTE | 2019-07-08 14:07 | CN ---
PATIENT NAME:KHUSHBU DUNCAN MEDICAL RECORD: [id number] : 50 LOCATION:D. D.2118 ADMIT DATE: 07/01/19 ACCOUNT: [id number] CONSULTING PHYSICIAN: ROCKY DAVIS MD REFERRING PHYSICIAN: JIMENEZ STEINBERG MD DATE OF CONSULTATION: 07/01/2019 CARDIOLOGY CONSULTATION DIAGNOSES: 1. Non-Q-wave myocardial infarction. 2. Coronary artery disease. 3. Previous cardiac stenting. 4. Hyperlipidemia. 5. Brain mass. 6. Chronic nausea, vomiting after cholecystectomy. 7. GERD. HISTORY OF PRESENT ILLNESS: Mrs. Duncan is admitted with a complex history and multiple symptomatology. In talking with her, she had a cholecystectomy within the past few months. She has had nausea, vomiting, and GI issues since she has undergone endoscopy. She was told that she has bile back washed after the cholecystectomy causing GERD. She has been treated medically for that. This has been an ongoing problem. She was admitted with that as well as headache, found to have a 2.5 cm mass in her head, this is as well a new problem. After these symptomatology, she then developed chest pain, it was compatible with her previous angina, dull aching, heavy sensation across the anterior chest, different than that of her GERD and her troponin is positive and increasing for a non-Q-wave myocardial infarction. She does continue to have chest discomfort this morning. The chest discomfort she is having this morning is like that of her previous angina and not like that of her GERD pain. She has a systolic blood pressure in 120s, heart rates in the 60s. Last cardiac stenting was in August. PHYSICAL EXAMINATION: CONSTITUTIONAL/GENERAL APPEARANCE: Well nourished, well developed, appears stated age. EYES: Lids and conjunctivae noninjected. No discharge. No pallor. ENT: Lips within normal limit. No cyanosis. No pallor. NECK: Carotid arteries, bilateral normal upstroke. No bruits. No thrills. No jugular venous pressure or distention. CERVICAL LYMPH NODES: Nontender. Nonenlarged. THYROID: Not enlarged. No nodules. CARDIOVASCULAR: Precordial exam, nondisplaced. No heaves or pericardial thrills. Rate and rhythm, regular. Heart sounds, normal S1, normal S2. No S3, no gallop, no rub. Systolic murmur, not heard. Diastolic murmur, not heard. RESPIRATORY: Respiratory effort, unlabored. Normal curvature. No thoracic deformity. No chest wall tenderness. Percussion, resonant. Auscultation, clear. No wheezes, no rales, no rhonchi. ABDOMEN: Soft, nondistended, nontender. No abdominal pain, no vomiting and normal appetite. MUSCULOSKELETAL: No joint tenderness, normal gait, normal tone. SKIN: Warm and dry. OVERALL IMPRESSION: Non-Q-wave myocardial infarction with continued angina. At CONSULT REPORT [id number] KHUSHBU DUNCAN this time, we will try long-acting nitrates if her blood pressure tolerates. She does not need a beta-ashley as her heart rate is 60. If she continues to have the discomfort, we will proceed with coronary angiography. Further care depends upon findings of the angiography. 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
== END 2019-07-02 12:55 | DRG 249 ==
LOC: D.ER 13:31 → D.M2 16:44 → OBSVTIME 16:55 → D.M2 07-01 18:34
PROVIDERS: Family Medicine; Internal Medicine Interventional Cardiology; ADMIT Family Medicine; ATTEND Family Medicine
PROC: B2111ZZ Fluoroscopy of Multiple Coronary Arteries using Low Osmolar Contrast (ICD-10-PCS; 2019-07-01)
PROC: B2151ZZ Fluoroscopy of Left Heart using Low Osmolar Contrast (ICD-10-PCS; 2019-07-01)
PROC: 4A033BC Measurement of Arterial Pressure, Coronary, Percutaneous Approach (ICD-10-PCS; 2019-07-01)
PROC: 02703DZ Dilation of Coronary Artery, One Artery with Intraluminal Device, Percutaneous Approach (ICD-10-PCS; principal; 2019-07-01 15:00)
PROC: 4A023N7 Measurement of Cardiac Sampling and Pressure, Left Heart, Percutaneous Approach (ICD-10-PCS; 2019-07-01 15:00)
DX: I21.4 Non-ST elevation (NSTEMI) myocardial infarction (principal); I25.10 Atherosclerotic heart disease of native coronary artery without angina pectoris; E78.5 Hyperlipidemia, unspecified; K21.9 Gastro-esophageal reflux disease without esophagitis; D32.0 Benign neoplasm of cerebral meninges; R42 Dizziness and giddiness; B34.9 Viral infection, unspecified; K25.9 Gastric ulcer, unspecified as acute or chronic, without hemorrhage or perforation; E03.9 Hypothyroidism, unspecified; R73.03 Prediabetes

== ENCOUNTER → 2020-12-22 10:37 | Outpatient (CLI) | payer BC ==
[2019-07-01 13:13] VITALS: BMI 28.0
[~2020-12-22 10:37] MED LIST changes: +ASPIRIN325 MG PO; +CARAFATE1 G PO; +EFFIENT10 MG PO
== END | disposition home or self-care (01) ==
LOC: D.HCCARDIO 11-16 11:00
PROVIDERS: ATTEND Internal Medicine Cardiovascular Disease
DX: I25.10 Atherosclerotic heart disease of native coronary artery without angina pectoris (principal)